=== PATIENT | female | born 1990 ===

== ENCOUNTER 2018-12-23 15:38 | Outpatient (REF) | payer OTHER, SELFPAY | END 2018-12-23 15:58 | LOC: NCHCN 15:38 | PROVIDERS: Visit Provider Nurse Practitioner Family | DX: N89.8 Other specified noninflammatory disorders of vagina (principal) | CPT/HCPCS: 87480; 87510; 87660 ==

== ENCOUNTER 2019-01-17 16:49 | Outpatient (REF) | payer OTHER, SELFPAY ==
[2019-01-17 18:57] LABS: ALT 20 U/L (12-78); AST 15 U/L (15-37); Albumin 3.9 g/dL (3.4-5.0); Alkaline Phosphatase 63 U/L (46-116); Amylase 56 U/L (25-115); Anion Gap 5.9 mmol/L (3-11); BUN 14 mg/dL (7-18); Bilirubin, Total 0.2 mg/dL (0.2-1.0); CO2 31.1 mmol/L (21.0-32.0); CREATININE 0.69 mg/dL (0.55-1.02); Calcium 8.8 mg/dL (8.5-10.1); Chloride 103 mmol/L (98-107); Glucose 104 mg/dL (70-100); Lipase 97 U/L (73-393); Potassium 3.8 mmol/L (3.5-5.1); Sodium 140 mmol/L (136-145)
[2019-01-17 19:01] LABS: HGB 13.3 g/dL (12.0-15.5); Mean Corp. HGB Concentration 32.4 g/dL (32.0-36.0); Mean Corpuscular Hemoglobin 29.4 pg (27.0-33.0); Mean Corpuscular Volume 90.7 fL (80-95); Mean Platelet Volume 10.1 fL (8.0-11.0); Platelet Count 283 x1000/uL (130-400); RBC 4.52 m/cumm (4.00-5.20); RBC Distribution Width 13.3 % (11.7-14.6); White Blood Cell Count 8.27 k/cumm (4.4-10.8)
== END 2019-01-17 17:09 ==
LOC: NCHCN 16:49
PROVIDERS: Visit Provider Nurse Practitioner Family
DX: R10.12 Left upper quadrant pain (principal)
CPT/HCPCS: 80053; 83690; 85027; 82150; 87086

== ENCOUNTER 2021-09-16 18:27 | Outpatient (REF) | payer OTHER, SELFPAY ==
[2021-09-18 13:34] LABS: Chlamydia Result Negative (Negative); GC Result Negative (Negative)
== END 2021-09-16 18:28 | disposition home or self-care (01) ==
LOC: NCHCN 18:27
PROVIDERS: Visit Provider Nurse Practitioner Family
DX: N89.8 Other specified noninflammatory disorders of vagina (principal); Z11.3 Encounter for screening for infections with a predominantly sexual mode of transmission
CPT/HCPCS: 87491; 87591; 87480; 87510; 87660

== ENCOUNTER 2022-01-20 16:10 | Outpatient (REF) | payer OTHER, SELFPAY ==
--- OUTSIDE RECORDS SUMMARY | 2022-01-20 16:13 | XMS_ITS ---
:1990 Author Care Team Providers Name Role Phone Cresencio Harley Primary Care Provider Unavailable Allergies Code Code System Name Reaction Severity Status Onset 7052 RxNorm Morphine Vomiting ? Active ? Medications Name Status Start Date Stop Date ? ? azithromycin 250 mg tablet Active ? Not a vailable benzonatate 100 mg capsule Active ? Not a vailable Crinone 4 % vaginal gel Completed 12/18/2013 01/02/20 14 90 milligram: once a day Crinone 8 % vaginal gel Completed 12/18/2013 01/02/20 14 90 milligram: once a day Endocet 5 mg-325 mg tablet Completed 11/07/201411/17 1 (one) Tablet Tablet: Every 4 to 6 hours as needed fluoxetine 20 mg capsule Completed ? 020 Guaiatussin AC 10 mg-100 mg/5 Active ? No t available mL oral liquid Loestrin Fe 1.5/30 (28-Day) 1.5 mg-30 mcg (21)/75 mg (7) tablet Active ? Not available Take 1 tablet every day by oral route. Mirena 20 mcg/24 hours (7 yrs) 52 mg intrauterine device Active ? Not available Take 1 device by intrauterine route. progesterone micronized (bulk) 100 % powder Completed 12/1003/22/2014 1 (one) Suppository: At bedtime triamcinolone acetonide 0.5 % topical cream Completed 03/1306/27/2014 1 (one) Cream Cream: BID - twice daily Problems Name Status Onset Date Source ? Generalized Anxiety Disorder Active ? His tory Nicotine Dependence Active ? History Depressive Disorder Active ? History Umbilical Hernia without Obstruction and Active ? History without Gangrene Diastasis of Muscle Active ? History Procedure by Method Unknown ? History Procedures Date Name Performed by ? 11/06/2014 Hernia Repair Information not avai lable Notes: Diastasis recti re pair, umbilical hernia repair, partial abdominal lipectomy Results Lab Results None recorded. Past Encounters None recorded. Social History Tobacco Smoking Status Former Smoker Vaccine List Vaccine Type Tdap 03/09/2007 02/23/2014?0.5 mL Plan of Care Reminders Provider Appointments None ? ? recorded. Lab None ? ? recorded. Referral None ? ? recorded. Procedures None ? ? recorded. Surgeries None ? ? recorded. Imaging None ? ? recorded. Vitals 12/05/2019 09:00AM Office 20 Height Weight BMI Blood Pressure 154.94 cm 55.52 kg 23.1 kg/m2 118/60 mm[Hg] 05/14/2014 Weight 48.53 kg 05/14/2014 Height Blood Pressure 149.86 cm 96/54 mm[Hg] 08/28/2013 Height Blood Pressure 149.86 cm 112/60 mm[Hg] 08/28/2013 Weight 43.72 kg 10/20/2012 Weight 46.27 kg 10/20/2012 Height Blood Pressure 151.76 cm 112/62 mm[Hg] 01/18/2012 Weight 43.32 kg 01/18/2012 Height Blood Pressure 151.76 cm 108/64 mm[Hg]
== END 2022-01-20 16:11 | disposition home or self-care (01) ==
LOC: NCHCN 16:10
PROVIDERS: Visit Provider Nurse Practitioner Family
DX: N89.8 Other specified noninflammatory disorders of vagina (principal)
CPT/HCPCS: 87480; 87510; 87660